=== PATIENT | male | born 1955 | race African-American/Black ===

== ENCOUNTER 2021-04-26 22:20 | Inpatient (IN) | payer MEDICARE, OTHER ==
[~2021-04-26] VITALS: Ht 175.3 cm; Wt 72.5 kg
[~2021-04-26 22:20] MED LIST: BUPR150SR PO; FAMO20 PO; FERG325 PO; FERR-89 PO; SENN-277 PO; SILD25 PO; TAMS-1 PO
[2021-04-26] MEDS ORDERED: MethylPREDNISolone SOD SUCC 125 MG/2 ML VIAL IVP ONE (22:45)
[2021-04-26] MEDS ORDERED: NALOXONE HCL 1 MG/ML 2 ML SYRINGE IM ONE (22:45)
[2021-04-26 23:11] LABS: HEMATOCRIT 52.9 % (41-53); HEMOGLOBIN 16.8 g/dL (13.5-17.5); MEAN CORPUSCULAR HGB CONC 31.7 G/dL (31.0-37.0); MEAN CORPUSCULAR VOLUME 88 fL (80-100); PLATELET COUNT (AUTO) 380 K/uL (150-450); RED BLOOD CELL COUNT(AUTO) 5.99 MIL/uL (4.50-5.90); RED CELL DISTRIBUTION WIDTH 14.9 % (11.5-14.5)
[2021-04-26 23:18] LABS: CALCIUM, TOTAL 9.5 mg/dL (8.8-10.5); CREATININE 1.82 mg/dL (0.60-1.30); POTASSIUM 4.7 mmol/L (3.5-5.1)
[2021-04-26 23:20] LABS: ABG BASE EXCESS -3.6 mmol/L (-2.0-3.0); ABG CARBOXYHEMOGLOBIN 1.4 % (0.0-1.5); ABG HCO3 21.6 mmol/L (22.0-26.0); ABG METHEMOGLOBIN 0.4 % (0.0-1.5); ABG OXYGEN CONTENT 22.9 mL/dL (15.0-23.0); ABG OXYGEN SATURATION 96.6 % (95.0-98.0); ABG OXYHEMOGLOBIN 94.9 % (94.0-100.0); ABG PCO2 42 mmHg (35-45); ABG TOTAL HEMOGLOBIN 17.2 G/dL (12.0-18.0); PO2, ARTERIAL BG 82.3 mmHg (66.0-74.0); SOURCE, BLOOD GAS ARTERIAL; TEMPERATURE, FAHRENHEIT, BG 98.6 FAHREN (96.0-98.6)
[2021-04-26 23:21] LABS: O2 DEVICE,BLOOD GAS BIPAP (ROOM AIR); SITE, BLOOD GAS RT RADIAL
[2021-04-26 23:24] LABS: BAND NEUTROPHILS % (MANUAL) 10 % (0-5); LYMPHOCYTES % (MANUAL) 7 % (22-44); MONOCYTES % (MANUAL) 8 % (2-9); SEGMENTED NEUTROPHILS % 75 % (40-70)
[2021-04-26 23:25] LABS: PLATELET MORPHOLOGY COMMENT GIANT PLTS PRESENT
[2021-04-26 23:33] LABS: ALBUMIN 4.1 g/dL (3.4-5.0); BILIRUBIN,TOTAL 0.3 mg/dL (0.1-1.0); TOTAL PROTEIN, SERUM 9.1 g/dL (6.4-8.2)
[2021-04-27] MEDS ORDERED: ASPIRIN 300 MG RECTAL SUPPOSITORY PR ONE
[2021-04-27 00:08] LABS: LACTIC ACID 2.4 mmol/L (0.4-2.0)
[2021-04-27] MEDS ORDERED: ASPIRIN 81 MG CHEWABLE TABLET PO ONE (00:15)
[2021-04-27 00:24] LABS: COVID AG,FIA SOURCE NASAL SWAB
[2021-04-27 00:34] LABS: APPEARANCE,URINE CLOUDY (CLEAR); BILIRUBIN,URINE NEGATIVE (NEGATIVE); GLUCOSE, URINE (UA) 250 mg/dL (NEGATIVE); KETONES,URINE NEGATIVE (NEGATIVE); LEUKOCYTE ESTERASE ,URINE SMALL (NEGATIVE); NITRATE,URINE NEGATIVE (NEGATIVE); OCCULT BLOOD,URINE LARGE (NEGATIVE); PH,URINE 5.5 (5.0-8.0); PROTEIN,URINE SEE CONFIRM (NEGATIVE); UROBILINOGEN,URINE 0.2 mg/dL (<=1.0)
[2021-04-27 00:40] LABS: AMPHET/METH SCREEN,URINE POSITIVE (NEGATIVE); BARBITURATE SCREEN, URINE NEGATIVE (NEGATIVE); BENZODIAZEPINES SCREEN,URINE NEGATIVE (NEGATIVE); CANNABINOID SCREEN,URINE POSITIVE (NEGATIVE); COCAINE SCREEN,URINE POSITIVE (NEGATIVE); METHADONE SCREEN, URINE NEGATIVE (NEGATIVE); OPIATE SCREEN,URINE POSITIVE (NEGATIVE); SULFOSALICYLIC ACID,URINE Negative (Negative)
[2021-04-27 00:41] LABS: BACTERIA,URINE Few /HPF (None Seen)
[2021-04-27 00:42] LABS: AMORPHOUS SEDIMENT,UR Moderate /LPF (None Seen); SQUAMOUS EPITHELIAL CELL,UR Many /LPF (None Seen)
[2021-04-27 00:46] LABS: PHENCYCLIDINE SCREEN,URINE NEGATIVE (NEGATIVE)
[2021-04-27] MEDS ORDERED: ACETAMINOPHEN 325 MG TABLET PO PRN (01:00)
[2021-04-27] MEDS ORDERED: RINGERS LACTATED IV ONE (01:00)
[2021-04-27] MEDS ORDERED: HEPARIN SODIUM,PORCINE 5,000 UNITS/ML VIAL IVP ONE (01:00)
[2021-04-27] MEDS ORDERED: ONDANSETRON HCL 4 MG/2 ML VIAL IVP PRN (01:00)
[2021-04-27] MEDS ORDERED: HEPARIN SODIUM 25000 UNITS/D5W 250 ML IV PRN ×2 (01:00→04:00)
[2021-04-27] MEDS ORDERED: HEPARIN SODIUM,PORCINE 5,000 UNITS/ML VIAL IVP PRN ×4 (01:00→04:03)
[2021-04-27] MEDS ORDERED: NALOXONE HCL 0.4 MG/ML VIAL IVP ONE (01:00)
[2021-04-27] MEDS ORDERED: NALOXONE HCL 10 MG in DEXTROSE 5%-WATER 240 ML IV PRN (01:00)
[2021-04-27] MEDS: PIPERACILLIN/TAZO 3.375 GM/D5W 50 ML IV SCH ×4 (01:54→20:25)
[2021-04-27 01:57] LABS: PROTHROMBIN TIME 11.1 SEC (9.4-11.6)
[2021-04-27] MEDS ORDERED: CefTRIAXone 1 GM/DEXTROSE 50 ML IV ONE ×2 (02:30)
[2021-04-27] MEDS ORDERED: AZITHROMYCIN 500 MG/NS 250 ML IV ONE (02:30)
[2021-04-27] MEDS: SODIUM CHLORIDE 0.9% 2,500 ML IV ONE ×2 (02:33→02:47)
[2021-04-27 04:00] VITALS: BP 155/81
[2021-04-27] MEDS: RINGERS SOLUTION,LACTATED 1,000 ML IV SCH (06:06)
[2021-04-27] MEDS ORDERED: LORazepam 2 MG/ML VIAL IVP PRN (10:00)
[2021-04-27] MEDS ORDERED: NOREPINEPHRINE 4 MG/D5%-WATER 250 ML IV PRN (10:00)
[2021-04-27 13:30] LABS: ANION GAP 7 mmol/L (8-16); CARBON DIOXIDE 28 mmol/L (22-29); CHLORIDE 105 mmol/L (98-107); CREATININE 1.14 mg/dL (0.60-1.30); GLOMERULAR FILTR. RATE CALC > 60 mL/min (>60); GLUCOSE,RANDOM 156 mg/dL (70-110); POTASSIUM 4.3 mmol/L (3.5-5.1); SODIUM SERUM 140 mmol/L (136-145); UREA NITROGEN, BLOOD 19 mg/dL (7-18)
[2021-04-27] MEDS ORDERED: HEPARIN SODIUM,PORCINE 5,000 UNITS/ML VIAL SQ SCH (16:00)
[2021-04-27] MEDS ORDERED: IOHEXOL 350 MG/ML 100 ML VIAL ONE ×2 (17:07→22:44)
[2021-04-27] MEDS ORDERED: LORazepam 2 MG/ML VIAL IVP ONE (23:15)
[2021-04-27] MEDS: ENOXAPARIN SODIUM 80 MG/0.8 ML PF SYRINGE SQ SCH (23:20)
[2021-04-28] VITALS: BP 114/53
[2021-04-28] MEDS: PIPERACILLIN/TAZO 3.375 GM/D5W 50 ML IV SCH ×4 (02:58→20:38)
[2021-04-28 04:00] VITALS: BP 140/67
[2021-04-28 08:00] VITALS: BP 143/82
[2021-04-28] MEDS: ENOXAPARIN SODIUM 80 MG/0.8 ML PF SYRINGE SQ SCH ×2 (09:36→21:33)
[2021-04-28] MEDS: RINGERS SOLUTION,LACTATED 1,000 ML IV SCH ×2 (09:37→18:33)
[2021-04-28 09:53] LABS: ANION GAP 6 mmol/L (8-16); CALCIUM, TOTAL 9.4 mg/dL (8.8-10.5); CARBON DIOXIDE 28 mmol/L (22-29); CHLORIDE 104 mmol/L (98-107); CREATININE 1.09 mg/dL (0.60-1.30); GLOMERULAR FILTR. RATE CALC > 60 mL/min (>60); GLUCOSE,RANDOM 95 mg/dL (70-110); POTASSIUM 3.8 mmol/L (3.5-5.1); SODIUM SERUM 138 mmol/L (136-145); UREA NITROGEN, BLOOD 16 mg/dL (7-18)
[2021-04-28 10:12] LABS: BASOPHILS % (AUTO) 0.3 % (0.0-2.0); EOSINOPHILS % (AUTO) 0 % (1.0-6.0); HEMATOCRIT 38.9 % (41-53); HEMOGLOBIN 12.6 g/dL (13.5-17.5); LYMPHOCYTES # (AUTO) 1.1 K/uL (1.0-4.8); MEAN CORPUSCULAR HEMOGLOBIN 28.1 pg (26.0-34.0); MEAN CORPUSCULAR HGB CONC 32.5 G/dL (31.0-37.0); MEAN CORPUSCULAR VOLUME 87 fL (80-100); MONOCYTES # (AUTO) 1.5 K/uL (0.1-1.0); MONOCYTES % (AUTO) 11.7 % (2.0-9.0); NEUTROPHILS # (AUTO) 10.6 K/uL (1.8-7.7); PLATELET COUNT (AUTO) 282 K/uL (150-450); RED BLOOD CELL COUNT(AUTO) 4.49 MIL/uL (4.50-5.90); RED CELL DISTRIBUTION WIDTH 14.4 % (11.5-14.5)
[2021-04-28 12:41] VITALS: BP 135/75
[2021-04-28 16:00] VITALS: BP 160/68
[2021-04-28 20:00] VITALS: BP 156/79
[2021-04-28] MEDS ORDERED: SODIUM CHLORIDE 0.9% 250 ML IV ONE (20:41)
[2021-04-29 00:31] VITALS: BP 148/83
[2021-04-29] MEDS: PIPERACILLIN/TAZO 3.375 GM/D5W 50 ML IV SCH ×3 (01:35→13:02)
[2021-04-29 04:20] VITALS: BP 149/81
[2021-04-29 08:02] VITALS: BP 146/87
[2021-04-29] MEDS: RINGERS SOLUTION,LACTATED 1,000 ML IV SCH (08:22)
[2021-04-29] MEDS: ENOXAPARIN SODIUM 80 MG/0.8 ML PF SYRINGE SQ SCH (08:24)
[2021-04-29] MEDS ORDERED: MULTIVITAMINS WITH MINERALS, THERAPEUTIC TABLET PO SCH (09:00)
[2021-04-29] MEDS ORDERED: LEVO-72 PO (12:42)
== END 2021-04-29 15:00 | disposition home or self-care (01) | DRG 917 ==
LOC: EDBD 22:24 → EMS 22:24 → ICUN 04-27 01:08 → 5N 04-28 11:50
PROVIDERS: ADMIT Internal Medicine; ATTEND Internal Medicine
PROC: 5A09357 Assistance with Respiratory Ventilation, Less than 24 Consecutive Hours, Continuous Positive Airway Pressure (ICD-10-PCS; principal; 2021-04-27)
PROC: 5A0935A Assistance with Respiratory Ventilation, Less than 24 Consecutive Hours, High Flow/Velocity Cannula (ICD-10-PCS; 2021-04-27)
DX: T50.901A Poisoning by unspecified drugs, medicaments and biological substances, accidental (unintentional), initial encounter (principal); G92.9 Unspecified toxic encephalopathy; J96.01 Acute respiratory failure with hypoxia; J18.9 Pneumonia, unspecified organism; N17.9 Acute kidney failure, unspecified; R65.10 Systemic inflammatory response syndrome (SIRS) of non-infectious origin without acute organ dysfunction; F15.90 Other stimulant use, unspecified, uncomplicated; F12.21 Cannabis dependence, in remission; F19.10 Other psychoactive substance abuse, uncomplicated; Z20.822 Contact with and (suspected) exposure to COVID-19; D72.829 Elevated white blood cell count, unspecified; Z87.891 Personal history of nicotine dependence; Y92.89 Other specified places as the place of occurrence of the external cause
CPT/HCPCS: 36600; 71045; 71275; 80048; 80053; 81001; 81002; 82550; 82805; 83605; 83735; 83880; 84484; 85025; 85379; 85610; 85730; 87040; 87070; 87081; 87205; 93005; 93306; 93970; 94660; 99291; G0378; J0456; J0696; J1644; J1650; J2060; J2310; J2405; J2543; J2930; J3490; J7030; J7050; J7060; J7120; Q9967; 36415-L1; 36415-TC; U0003

== ENCOUNTER 2022-02-24 11:15 | Emergency (ER) | payer MEDICARE, OTHER ==
[~2022-02-24] VITALS: Ht 160 cm; Wt 70.5 kg
[~2022-02-24 11:15] MED LIST changes: +BUPR-72 PO; -BUPR150SR PO; -FERR-89 PO; +FERR325T27 PO; +LEVO-72 PO
[2022-02-24 11:22] VITALS: BP 119/61
[2022-02-24] MEDS ORDERED: QUET25TA PO (11:22)
[2022-02-24] MEDS ORDERED: SULF-261 PO (12:05)
[2022-02-24] MEDS ORDERED: FERR324T23 PO (12:24)
== END 2022-02-24 12:39 | disposition home or self-care (01) ==
LOC: EMS 11:24
DX: L03.114 Cellulitis of left upper limb (principal); F17.210 Nicotine dependence, cigarettes, uncomplicated; F15.90 Other stimulant use, unspecified, uncomplicated; F19.90 Other psychoactive substance use, unspecified, uncomplicated; Z98.890 Other specified postprocedural states
CPT/HCPCS: 99283; Z7502